=== PATIENT | male | born 1995 | race Caucasian/White ===

== ENCOUNTER 2020-03-27 16:19 | Emergency (ER) | payer SELFPAY ==
[2020-03-27 16:26] VITALS: BP 149/72; PULSE 75; RESP 18; TEMP 36.3; O2SAT 98; BMI 30.9
[2020-03-27 17:04] VITALS: BP 117/62; PULSE 93; RESP 14; O2SAT 98
--- NOTE | 2020-03-27 17:16 | ED_ITS ---
HPI - Skin/Abscess/Foreign Bdy General: Chief complaint: Skin/Abscess/Foreign Body Stated complaint: Left Eye Complications Time Seen by Provider: 03/27/20 16:28 History of Present Illness: HPI narrative: She complains about left eyebrow cyst is got worse over the last few days. Is been present couple of years. He has been squeeze on it now is red and swollen has a headache on his side. MD complaint: abscess/boil Onset (ago): year(s) Location: face Severity: mild Severity scale (1-10): 2 Quality: aching Pain Consistency: constant Relieving factors: none Associated symptoms: Deny chills, fever(s), nausea or vomiting Review of Systems Const: Denies: fever(s), chills or body aches Eyes: Denies: change in vision or blurry vision ENMT: Denies: throat pain or nasal congestion Card: Denies: chest pain or dyspnea on exertion Resp: Denies: dyspnea, productive cough or non-productive cough GI: Denies: abdominal pain, nausea or vomiting : Denies: difficulty urinating Musc: Denies: extremity pain Skin/Breast: Reports: changing lesions; Denies: rash Neuro: Denies: headache(s) Psych: Denies: anxiety or depression Clement/Lymph: Denies: easy bruising Physical Exam Const: COMMON NORMALS: no acute distress, average body habitus and patient oriented x3 HENMT: COMMON NORMALS: normocephalic HEAD & SCALP: normal to inspection and normocephalic FACE & SINUS: normal facial exam Eye: COMMON NORMALS: conjunctivae normal GENERAL EYE: appearance normal, both eyes and all related structures CONJUNCTIVA: Yes conjunctivae normal Neck/C-Spine: COMMON NORMALS: no JVD Chest: COMMONS NORMALS: normal inspection of the chest Resp: COMMON NORMALS: normal respiratory effort Cardio: COMMON NORMALS: no JVD GI: COMMON NORMALS: Normal to inspection, nondistended, normoactive bowel sounds present Extremity: COMMON NORMALS: normal to inspection and full ROM Neuro: COMMON NORMALS: patient oriented x3 Skin: GENERAL SKIN EXAM: other (Patient has redness swelling classic sebaceous cyst left eyebrow area is te) Procedures Abscess I/D Site: face Side (if applicable): left Local Anesthetic: lidocaine 1% Amount of anesthesia used (mL): 2 Irrigation: No Packing used?: none Course Vital Signs: Vital signs: Vital Signs Temperature 97.3 F L 03/27/20 16:26 Pulse Rate 81 03/27/20 17:56 Respiratory Rate 14 03/27/20 17:56 Blood Pressure 107/67 03/27/20 17:56 Pulse Oximetry 97 03/27/20 17:56 MDM - Skin/Abscess/Foreign Bdy MDM Narrative: Medical decision making narrative: Was able to express quite a bit of cottage cheese looking type material was not able to remove the cyst sac after incising the abscess #11 blade Discharge Plan Discharge Patient Disposition: Home Clinical Impression: Cyst, sebaceous, eyelid Qualifiers: Laterality: left Qualified Code(s): H02.826 - Cysts of left eye, unspecified eyelid Condition: Stable Prescriptions: No Action Tylenol Extra Strength 500 mg Tablet 1,000 mg PO PRN RF: 0 Discharge Orders: Discharge Order (Routine); Ordered 03/27/20 Ordered By: Colt Dailey Referrals: Ciro Arora MD [Primary Care Provider] - Discharge Diet: Usual diet Discharge Activity: Resume usual activity Patient Instructions: Abscess Incision and Drainage (ED) Activity Restrictions/Additional Instructions: Follow-up primary care provider as needed. Keep area clean and dry. Coding Level of Care Code ED Oral And Maxillofacial Surgery Resident for [employer] Fwd Exam Comprehensive
[2020-03-27 17:56] VITALS: BP 107/67; PULSE 81; RESP 14; O2SAT 97
[2020-03-27] MEDS: lidocaine 1% INJ 20 mL INTRADERMA (17:57)
== END 2020-03-27 17:57 | disposition home or self-care (01) ==
PROVIDERS: Emergency Provider Nurse Practitioner Family; PCP Family Medicine
DX: H02.826 Cysts of left eye, unspecified eyelid (principal)
CPT/HCPCS: 10060; 12345; 99281; 99282

== ENCOUNTER 2021-05-08 05:31 | Emergency (ER) | payer MEDICAID, SELFPAY ==
[2021-05-08 05:36] VITALS: BP 130/82; PULSE 87; RESP 18; TEMP 36.6; O2SAT 97; BMI 30.9
--- NOTE | 2021-05-08 06:00 | ED_ITS ---
HPI - Eye Problem General: Chief complaint: Eye Problems Stated complaint: Eye pain Time Seen by Provider: 05/08/21 05:39 History of Present Illness: HPI Narrative: 25-year-old male presents emergency room complaining of burning in the eyes. 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 He has burning sensation in the eyes from redness clear watery drainage no purulence. He is extremely photophobic. chief complaint: eye pain and eye redness Onset (ago): hour(s) Onset description: awoke with symptoms Duration: constant Location: both eyes Eye Symptoms: burning, redness, pain, foreign body sensation and photophobia Place: home Mechanism: UV exposure Severity: severe If Pain, Quality: sharp Associated symptoms: Denies cough, fever(s), headache(s), nausea, neck pain, numbness, rhinorrhea, short of breath, vomiting or weakness Treatments Prior to Arrival: none Review of Systems Const: Denies: fever(s) ENMT: Denies: throat pain, ear or mastoid pain, nasal discharge or nasal congestion Card: Denies: chest pain, edema, dyspnea on exertion or orthopnea Resp: Denies: dyspnea, productive cough or non-productive cough GI: Denies: nausea or vomiting Musc: Denies: neck pain Skin/Breast: Denies: rash or pruritus Neuro: Denies: headache(s) PFS ED PFSH: Medical History (Updated 05/08/21 @ 06:02 by Uriel Ruelas DO) No significant past medical history Surgical History (Updated 05/08/21 @ 06:02 by Uriel Ruelas DO) No significant past surgical history Social History (Updated 05/08/21 @ 06:02 by Uriel Ruelas DO) Smoking and tobacco status: current every day smoker Alcohol intake: current Physical Exam Const: GENERAL APPEARANCE: cooperative ORIENTATION/CONSCIOUSNESS: Yes awake, Yes oriented to person, Yes oriented to place and Yes oriented to time HENMT: COMMON NORMALS: normocephalic and atraumatic HEAD & SCALP: normocephalic and atraumatic Eye: COMMON NORMALS: Equal, round and reactive pupils present and EOMs intact bilaterally PUPIL: Yes Equal, round and reactive pupils present OTHER: Scleral injection. Watery drainage. Tetracaine applied fluorescein applied examination under UV light no corneal abrasions. Lids and eyelashes normal. Resp: COMMON NORMALS: normal respiratory effort, No retractions, No use of accessory muscles and clear to auscultation bilaterally AUSCULTATION: clear to auscultation bilaterally Cardio: COMMON NORMALS: regular rate, regular rhythm and No murmurs present (Cardio) RATE: regular rate RHYTHM: regular rhythm Neuro: SENSORIUM/ORIENTATION: Yes oriented to person, Yes oriented to place and Yes oriented to time Course Vital Signs: Vital signs: Vital Signs Temperature 97.8 F 05/08/21 05:36 Pulse Rate 87 05/08/21 05:36 Respiratory Rate 18 05/08/21 05:36 Blood Pressure 130/82 05/08/21 05:36 Pulse Oximetry 97 05/08/21 05:36 MDM - Eye Problem MDM Narrative: Medical decision making narrative: UV keratitis. Avoid light exposure. Analgesics given as well as antibiotic ointment for the eyes use 4 times daily for the next 4 to 5 days. Follow-up with ophthalmology or optometry in the next 3 days. Discharge Plan Discharge Patient Disposition: Home Clinical Impression: UV keratitis Condition: Stable Prescriptions: New hydrocodone-acetaminophen 5-325 mg tablet 1 tab PO Q6H PRN (Reason: pain) Qty: 20 RF: 0 bacitracin-polymyxin B 500-10,000 unit/gram ointment 1 applic ophthalmic (eye) QID 5 Days Qty: 3.5 RF: 0 Discontinued acetaminophen [Tylenol Extra Strength] 500 mg Tablet 1,000 mg PO PRN RF: 0 Discharge Orders: Discharge ED (Routine); Ordered 05/08/21 Ordered By: Uriel Ruelas Referrals: Ciro Arora MD [Primary Care Provider] - Discharge Diet: Usual diet Discharge Activity: Increase activity as tolerated Patient Instructions: Opioid Safety Activity Restrictions/Additional Instructions: Follow-up with an woodworking bench carpenter or rigging foreman in the next 3 to 5 days. Coding Level of Care Code ED Senior Quality Methods Specialist for Jt Fwd Exam Detailed
[2021-05-08] MEDS: fluorescein 1 mg Strip EYE-BOTH (06:08)
[2021-05-08] MEDS: tetracaine 0.5% Op Soln 4 mL Btl 1 DROP EYE-BOTH (06:08)
[2021-05-08] MEDS: eye irrigation 30 mL Btl EYE-BOTH (06:09)
[2021-05-08] MEDS: HYDROcodone-acetaminophen 5-325 mg Tablet 2 TAB PO (06:13)
== END 2021-05-08 06:36 | disposition home or self-care (01) ==
PROVIDERS: Emergency Provider Family Medicine; PCP Family Medicine
DX: H16.8 Other keratitis (principal); W89.8XXA Exposure to other man-made visible and ultraviolet light, initial encounter; F17.210 Nicotine dependence, cigarettes, uncomplicated
CPT/HCPCS: 99283

== ENCOUNTER 2022-03-13 06:14 | Emergency (ER) | payer MEDICAID, SELFPAY ==
[2022-03-13 06:16] VITALS: BP 126/84; PULSE 102; RESP 18; TEMP 36.5; O2SAT 98; BMI 27.4
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
[2022-03-13] MEDS: HYDROcodone-acetaminophen 5-325 mg Tablet 1 TAB PO (07:06)
[2022-03-13 07:49] VITALS: BP 145/77; PULSE 107; RESP 14; O2SAT 100
--- NOTE | 2022-03-15 11:27 | DCPLANNER ---
Addendum entered by Dorcas Ace 03/18/22 16:33: Patient had a follow up appointment scheduled for 03.17.[address] Condon at ortho - patient did attend appointment. Original Note: senior site manager had message to schedule a follow up appointment for patient with ortho. senior site manager sent patients information to the front office staff at ortho. Patients information will be printed and reviewed. Clinic will call patient with appointment information.
== END 2022-03-13 08:00 | disposition home or self-care (01) ==
PROVIDERS: Emergency Provider Emergency Medicine
DX: S92.001A Unspecified fracture of right calcaneus, initial encounter for closed fracture (principal); V89.2XXA Person injured in unspecified motor-vehicle accident, traffic, initial encounter; F15.90 Other stimulant use, unspecified, uncomplicated; F17.200 Nicotine dependence, unspecified, uncomplicated
CPT/HCPCS: 29515; 70450; 72125; 73610; 73630; 99285; E0114

== ENCOUNTER 2022-03-17 14:53 | Outpatient (CLI) | payer MEDICAID, SELFPAY | END 2022-03-17 14:54 | disposition home or self-care (01) | LOC: SPT 14:54 | PROVIDERS: Visit Provider Podiatrist Foot & Ankle Surgery | DX: Z46.89 Encounter for fitting and adjustment of other specified devices (principal); S92.054 Nondisplaced other extraarticular fracture of right calcaneus; X58.XXXD Exposure to other specified factors, subsequent encounter | CPT/HCPCS: 97760; 99204; L4361 ==

== ENCOUNTER 2025-03-27 14:26 | Emergency (ER) | payer BC, MEDICAID, SELFPAY ==
[2025-03-27 14:27] VITALS: BP 127/86; PULSE 89; RESP 18; TEMP 36.5; O2SAT 99; BMI 29.2
--- NOTE | 2025-03-27 14:50 | ED_ITS ---
HPI - Wound/Laceration 2 General: Chief Complaint: Wound/Laceration Stated Complaint: Left Ring finger cut lumps all over body Time Seen by Provider: 03/27/25 14:42 Source: patient Mode of arrival: ambulatory Limitations: no limitations History of Present Illness: Patient is a 29-year-old male presents emergency department complaining of lesion to left finger as well as scattered lesions that have been going on the past few days. States that he cut his finger few days ago with a dirty knife, and since then it has caused the finger to get progressively more red and swollen and has noted red streaking up towards left elbow. Does note that it is quite painful, but still has range of motion and sensations. He also notes, that he has noted scattered lesions, primarily to the back, head, and groin region that have been draining and painful. He does not report any nausea vomiting or fevers or chills, or any other signs of systemic illness. He has not been on any antibiotics previously, unknown tetanus status. His vitals are stable at this time, overall nontoxic-appearing. Onset (ago): day(s) Extremity Location: Left: hand (ring finger) Place: home Patient tetanus UTD: No Context: accidental Associated symptoms: Denies chills, fever(s), nausea or vomiting Related Data Previous Rx's ?Medication ?Instructions ?Recorded hydrocodone 5 mg-acetaminophen 325 1 tab PO Q6H PRN pa in #20 tabs 05/08/ mg tablet naproxen 500 mg tablet (Naprosyn) 500 mg PO BID PRN pa in #20 tabs 03/13/22 CAM boot #1 ea 03/17/22 acetaminophen 500 mg capsule 500 mg PO QID PRN pain #4 0 caps 03/17/22 ibuprofen 800 mg tablet 800 mg PO Q8H PRN pain #30 t abs 03/17/22 amoxicillin 875 mg-potassium 1 tab PO BID 10 days #20 tabs 03/27/25 clavulanate 125 mg tablet Allergies Allergy/AdvReac Type Severity Reaction Status Date / Time No Known Allergies Allergy Verified 03/27/20 16:48 Review of Systems 2 General: Reports: 10 or more systems reviewed and unremarkable except in HPI and below Const: Denies: fever(s) or chills Card: Denies: chest pain Resp: Denies: dyspnea GI: Denies: abdominal pain, nausea, vomiting or diarrhea Musc: Denies: extremity pain or joint pain Skin/Breast: Reports: erythema, skin pain, skin tenderness, skin swelling, new lesions (Scattered draining/painful lesions) and non-healing lesions (Left ring finger); Denies: rash Neuro: Denies: headache(s) PFSH ED 2 PFSH: Medical History No significant past medical history Surgical History No significant past surgical history Social History Smoking and tobacco/nicotine status: current every day tobacco/nicotine user Alcohol intake: current Physical Exam 2 Const: COMMON NORMALS: no acute distress, average body habitus, patient oriented x3, no limitations, healthy appearing, alert and well nourished O THER: nontoxix HENMT: COMMON NORMALS: normocephalic and atraumatic HEAD & SCALP: n ormocephalic and atraumatic Neck/C-Spine: COMMON NORMALS: full ROM, no lymphadenopathy, supple and no meningeal signs Resp: COMMON NORMALS: normal respiratory effort, No use of accessory muscles and clear to auscultation bilaterally AUSCULTATION: clear to auscultation bilaterally Cardio: COMMON NORMALS: regular rate and regular rhythm RATE: regular rate RHYTHM: regular rhythm Neuro: COMMON NORMALS: patient oriented x3, moves all extremities, no focal motor deficits and no sensory deficits noted SENSORIUM/ORIENTATION: Yes alert MENINGEAL SIGNS: Yes no meningeal signs Skin: COMMON NORMALS: turgor normal NARRATIVE SKIN EXAM: The left ring finger diffusely erythematous and swollen, tender to palpation. Swelling does not extend into the hand, though there is notable red streaking that extends to the inner left forearm. Range of motion is preserved, sensations intact. Primarily to patient's back, scalp, face there are scattered yellow crusted lesions that look impetiginous GENERAL SKIN EXAM: turgor normal Course 2 Vital Signs: Vital signs: Vital Signs Temperature 97.7 F 03/27/25 14:27 Pulse Rate 89 03/27/25 14:27 Respiratory Rate 18 03/27/25 14:27 Blood Pressure 127/86 03/27/25 14:27 Pulse Oximetry 99 03/27/25 14:27 Oxygen Delivery Me thod Room Air 03/27/25 14:27 MDM - Wound/Laceration Medical Decision Making Patient presented for a couple of complaints, he had scattered lesions as well as a nonhealing left ring finger where he had previously cut himself with a knife few days prior. His tetanus was updated today. Exam there was redness and fusiform swelling to the left ring finger, and evidence of lymphangitic spread up the left arm. However this patient nontoxic-appearing had no complaints of fever, chills, nausea or vomiting, or general malaise/weakness. Labs were obtained, there is no leukocytosis, no significant elevation in ESR or CRP to indicate any systemic infectious process. However very obvious that this is a cellulitis to the left ring finger and the scattered lesions appear to be impetiginous, so we will treat with p.o. antibiotics for home. He is given Rocephin here empirically prior to outpatient p.o. antibiotics, and as mentioned his tetanus was updated. Overall this time this patient is stable for discharge home, not requiring IV antibiotics, and still discussed with him reasons to return and signs and symptoms to watch for specifically. This patient agrees to discharge plan at this time. Lab Data 03/27/25 14:53 Laboratory Results WBC 7.48 10^3/uL (3.29-11.43) 03/27/25 14:53 RBC 4.76 10^6/uL (3.85-5.65) 03/27/25 14:53 Hgb 14.00 g/dL (11.27-16.99) 03/27/25 14:53 Hct 41.6 % (37-53) 03/27/25 14:53 MCV 87.4 fl (82-101) 03/27/25 14:53 MCH 29.4 pg (27-33) 03/27/25 14:53 MCHC 33.7 g/dL (30-55) 03/27/25 14:53 RDW 13.6 % (12.1-15.1) 03/27/25 14:53 Plt Count 264 10^3/cmm (157-399) 03/27/25 14:53 MPV 9.6 fL (7.4-10.4) 03/27/25 14:53 Neut % (Auto) 59.2 % 03/27/25 14:53 Lymph % (Auto) 25.5 % 03/27/25 14:53 Davie % (Auto) 10.4 % 03/27/25 14:53 Eos % (Auto) 3.5 % 03/27/25 14:53 Baso % (Auto) 1.1 % 03/27/25 14:53 Neut # (Auto) 4.43 10^3/uL (1.8-7.7) 03/27/25 14:53 Lymph # (Auto) 1.9 10^3/uL (0.8-4.8) 03/27/25 14:53 Davie # (Auto) 0.8 10^3/uL (0.2-0.9) 03/27/25 14:53 Eos # (Auto) 0.3 10^3/uL (0.0-0.8) 03/27/25 14:53 Baso # (Auto) 0.1 10^3/uL (0.0-0.1) 03/27/25 14:53 Nucleated RBC % (auto) 0 % 03/27/25 14:53 Nucleated RBCs # 0.0 /100WBC 03/27/25 14:53 ESR 4 mm/hr (0-10) 03/27/25 14:53 C-Reactive Protein 4.7 mg/L (0.0-4.9) 03/27/25 14:53 No radiology studies performed this visit Discharge Plan Discharge Patient Disposition: Home Clinical Impression: Cellulitis of left ring finger Condition: Stable Prescriptions: New amoxicillin-pot clavulanate 875-125 mg tablet 1 tab PO BID 10 Days Qty: 20 0RF No Action (DME) CAM boot See Rx Instructions .Route .MEDSUPPLY Qty: 1 0RF Rx Instructions: As directed ibuprofen 800 mg tablet 800 mg PO Q8H PRN (Reason: pain) Qty: 30 1RF Rx Instructions: Take one tablet every 8 hours as needed for pain acetaminophen 500 mg capsule 500 mg PO QID PRN (Reason: pain) Qty: 40 1RF Rx Instructions: Take one capsule every 6 hours as needed for pain hydrocodone-acetaminophen 5-325 mg tablet 1 tab PO Q6H PRN (Reason: pain) Qty: 20 0RF Naprosyn 500 mg tablet 500 mg PO BID PRN (Reason: pain) Qty: 20 0RF Discharge Orders: Discharge ED (Routine); Ordered 03/27/25 Ordered By: Jameson Henning Patient Instructions: Patient Portal & Kelly Instructions Activity Restrictions/Additional Instructions: Cellulitis Discharge Instructions You have been diagnosed with cellulitis (a skin infection) of your left ring finger, with some spread up your arm. Your condition is stable and can be treated at home. Medication Instructions: - Take amoxicillin-clavulanate (Augmentin) as prescribed: twice daily for 10 days. Finish the entire course, even if you start to feel better. - If you miss a dose, take it as soon as you remember. If it?s almost time for your next dose, skip the missed dose?do not double up. Care for Your Finger and Arm: - Keep your hand elevated (above heart level) as much as possible to reduce swelling. - Rest the affected hand and avoid strenuous activity. - You may use acetaminophen or ibuprofen for pain, unless otherwise directed. Wound Care: - Keep the area clean and dry. If a dressing was applied, follow instructions for changing it. - Wash hands before and after touching the affected area. What to Expect: - Redness, swelling, and tenderness should begin to improve within a few days of starting antibiotics. - Some mild increase in redness or swelling can occur after starting treatment, but should not worsen significantly. Strict Return Precautions: Return to the emergency department or contact your healthcare provider immediately if you experience: - Increasing redness, swelling, or pain in the finger or arm. - Fever (temperature > 100.4?F/38?C), chills, or feeling generally unwell. - Red streaks spreading further up the arm. - Pus or drainage from the area. - Difficulty moving the finger or hand, numbness, or color changes (pale or blue). - Rapid heartbeat, confusion, or dizziness. Follow-Up: - Schedule a follow-up appointment in 3?5 days, or sooner if symptoms worsen. Prevention: - Protect your skin from cuts and scrapes. - Treat any underlying conditions that may increase risk for future cellulitis. If you have any questions or concerns, do not hesitate to contact your healthcare provider. Print Language: Zambian Coding Level of Care Code ED Toxics Program Officer for Jt Reid
[2025-03-27 15:01] LABS: Hematocrit 41.6 % (37-53); Hemoglobin 14.00 g/dL (11.27-16.99); Mean Corpuscular HGB Conc 33.7 g/dL (30-55); Mean Corpuscular Hemoglobin 29.4 pg (27-33); Mean Corpuscular Volume 87.4 fl (82-101); Nucleated Red Blood Cells % 0 %; Platelet Count 264 10^3/cmm (157-399); Red Blood Count 4.76 10^6/uL (3.85-5.65); White Blood Count 7.48 10^3/uL (3.29-11.43)
[2025-03-27] MEDS: cefTRIAXone 1,000 MG in water for injection-sterile 2.1 ML 2.1 MG IM (15:04)
[2025-03-27] MEDS: tetanus-dipt-pertussis 0.5 mL SDV IM (15:04)
[2025-03-27 16:00] VITALS: BP 113/74; PULSE 76; RESP 18; O2SAT 99
--- OUTSIDE RECORDS SUMMARY | 2025-03-27 17:28 | XMS_ITS | Patient Health Record ---
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 Magda Marcus Primary Care Provider [phone] Allergies No Known Allergies Reason For Referral No Information Medications Medication SIG (Take, Route, Frequency, Duration) Notes Start Date End Date Status traZODone HCl 50 MG Tablet 1 tablet Orally Once daily at bedtime; Duration: 30 days 340B Active Mavyret 100-40 MG Tablet 3 tablets Orally Once a day; Duration: 56 days 02/22/2022 Active Amoxicillin-Pot Clavulanate 875-125 MG Tablet 1 tablet Orally every 12 hrs; Duration: 10 day(s) Take with probiotic 02/03/2022 Active FLUoxetine HCl 20 MG Capsule 1 capsule Orally Once a day; Duration: 30 days 340B Active Immunizations Vaccine Route Administration Date Status Comme nts Flulaval Quad IM Intramuscular 02/03/2022 Administered Social History Sex Assigned At : Social History Observation Description Sex Assigned At Male Social History Comprehensive Health Assessm ent Social Info Question Answer Notes Comprehensive Health Assessment Assistance with drug c ost? No Assistance with food cost? No Any communication needs? No Any High risk behaviors ? No Any Mental health issues? No Any substance abuse ? No Problems understanding meds or dx ? No Has been referred for Comp. Care Plan? No Problems Problem Type SNOMED Code ICD Code Onset Dates Problem Status W/U Status Risk Notes Problem Smoking (56867799) Smoking (F17.200) Active confirmed Problem Hepatitis (703018832) Hepatitis (K75.9) Active confirmed Problem Mixed anxiety and depressive disorder (175596065) Depression with anxiety (F41.8) Active confirmed Plan Of Treatment Next Appt Details Provider Name:Magda Marcus, 04/17/2025 03:10:00 PM, [address] [place], [address], Insurance Providers Payer Name Payer Address Payer Phone Subscriber Number Group Number Insured Name Patient Relationship to Insured Coverage Start Date Coverage End Date Medicaid [address] [place] [address] [id number] Colten Parks Self - patient is the insured Medical (General) History Medical History History ICD Code Hep C w/o coma, chronic B18.2 Depression with anxiety F41.8 Insomnia G47.00 Surgical History Surgery Date(Month/Year) dental surgery
== END 2025-03-27 15:30 | disposition home or self-care (01) ==
PROVIDERS: Emergency Provider Physician Assistant
DX: L03.012 Cellulitis of left finger (principal); Z23 Encounter for immunization
CPT/HCPCS: 85025; 85651; 86140; 90715; 96372; 99284; J0696; J9999